=== PATIENT | female | born 1970 | race Caucasian/White ===

== ENCOUNTER 2022-01-10 08:42 | Day surgery (SDC) | payer MEDICAID, SELFPAY ==
[2022-01-08 14:22] VITALS: BMI 34.7
[2022-01-10 09:10] VITALS: BP 130/83; PULSE 79; RESP 18; TEMP 36.8; O2SAT 99
[2022-01-10] MEDS: sodium chloride 0.9% 1,000 ML 30 ML IV (09:22)
--- NOTE | 2022-01-10 09:32 | ANES.PREANE2 ---
Pre-Anesthetic Assessment Height/Weight: Height 1.57 m Weight 86.183 kg Temp Pulse Resp BP Pulse Ox 98.2 F 79 18 130/83 99 01/10/22 09:10 01/10/22 09:10 01/10/22 09:10 01/10/22 09:10 01/10/22 09:10 Preop Diagnosis: diagnostic Operation Date: 01/10/22 10:00 Proposed Procedures p EGD 91765/r10.9(Not Applicable) - Dale Aguilar MD s Colonoscopy 09781/z12.11(Not Applicable) - Dale Aguilar MD Familial anesthetic complications: none Was Beta Dolores taken within 24 hours: N/A Was Clonidine taken within 24 hours: N/A Last intake: Intake Last Liquid Date 01/09/22 Last Liquid Time 20:00 Last Solid Date 01/08/22 Last Solid Time 19:00 Social No alcohol and No tobacco Former use of methamphetamines Exam alert, oriented x 3, clear to auscultation bilaterally and regular rate & rhythm Airway Mallampati: Class II Dentition: full and other (several pulled due to dental caries) Pulmonary None reported CV/HEM None reported None reported Hepatic None reported GI None reported Metabolic None reported goiter - non toxic Musc/skel None reported Neuropsych None reported Anesthetic Plan ASA status: 2 Anesthesia: MAC Medications/Allergies Home Medications Medication Instructions Recorded Confirmed Last Taken Type azelastine 137 mcg (0.1 %) nasal 2 spray INTRANASAL BID 12/05/21 01/10/22 Unknown History spray aerosol ferrous sulfate 325 mg (65 mg 325 mg PO DAILY 12/05/21 01/10/22 01/07/22 History iron) tablet (FeroSul) omeprazole 20 mg capsule,delayed 20 mg PO DAILY 12/05/21 01/10/22 1 Week Ago History release ~01/03/22 aspirin 500 mg-acetaminophen 325 1 ea PO Q6H PRN 01/08/22 01/10/22 01/08/22 History mg-caffeine 65 mg oral powder pack ([employer] Extra Strength) fluticasone propionate 110 2 puff INHALATION BID 01/08/22 01/10/22 01/10/22 History mcg/actuation HFA aerosol inhaler (Flovent HFA) methocarbamol 750 mg tablet 750 mg PO BID 01/08/22 01/10/22 Unknown History vilazodone 10 mg tablet (Viibryd) 10 mg PO DAILY 01/08/22 01/10/22 01/10/22 History Allergies Allergy/AdvReac Type Severity Reaction Status Date / Time amoxicillin [From Augmentin] Allergy ADR-Itching Verified 01/10/22 09:09 clavulanic acid Allergy ADR-Itching Verified 01/10/22 09:09 [From Augmentin] Current Medications Generic Name Dose Route Start Last Admin Trade Name Ramuq PRN Reason Stop Dose Admin Sodium Chloride 1,000 mls @ 30 mls/hr 01/10/22 09:00 01/10/22 09:22 Sodium Chloride 0.9% IV 01/11/22 08:59 30 mls/hr .Q24H OPAL Administration PFSH Anesthesia Medical History History of substance use Mental health disorder Surgical History History of cholecystectomy Family History Other Cancer Social History Smoking and tobacco status: never smoked Second hand smoke exposure: Yes Female Reproductive History Date of last menstrual period: 10/13/21 Data Anesthesia Cardiac Studies: No Data to Display
--- NOTE | 2022-01-10 10:23 | P.HP_ITS ---
Same Day Surgery H&P Indication for Procedure/HPI DATE OF PROCEDURE: January 10, 2022 CHIEF COMPLAINT/INDICATIONFOR SURGICAL PROCEDURE: egd/colon PREOP DIAGNOSIS: diagnostic PLANNED PROCEDURE: Operation Date: 01/10/22 10:00 Proposed Procedures p EGD 30479/r10.9(Not Applicable) - Dale Aguilar MD s Colonoscopy 07462/z12.11(Not Applicable) - Dale Aguilar MD Medications/Allergies* Home Medications Medication Instructions Recorded Confirmed Type azelastine 137 mcg (0.1 %) nasal 2 spray INTRANASAL BID 12/05/21 01/10/22 History spray aerosol ferrous sulfate 325 mg (65 mg 325 mg PO DAILY 12/05/21 01/10/22 History iron) tablet (FeroSul) omeprazole 20 mg capsule,delayed 20 mg PO DAILY 12/05/21 01/10/22 History release aspirin 500 mg-acetaminophen 325 1 ea PO Q6H PRN 01/08/22 01/10/22 History mg-caffeine 65 mg oral powder pack ([employer] Extra Strength) fluticasone propionate 110 2 puff INHALATION BID 01/08/22 01/10/22 History mcg/actuation HFA aerosol inhaler (Flovent HFA) methocarbamol 750 mg tablet 750 mg PO BID 01/08/22 01/10/22 History vilazodone 10 mg tablet (Viibryd) 10 mg PO DAILY 01/08/22 01/10/22 History Allergies/Adverse Reactions Allergy/AdvReac Type Severity Reaction Status Date / Time amoxicillin [From Augmentin] Allergy ADR-Itching Verified 01/10/22 09:09 clavulanic acid Allergy ADR-Itching Verified 01/10/22 09:09 [From Augmentin] Current Medications: Generic Name Dose Route Start Last Admin Trade Name Freq PRN Reason Stop Dose Admin Sodium Chloride 1,000 mls @ 30 mls/hr 01/10/22 09:00 01/10/22 09:22 Sodium Chloride 0.9% IV 01/11/22 08:59 30 mls/hr .Q24H OPAL Administration Pertinent History/Comorbid Conditions* Medical History (Updated 12/13/21 @ 11:23 by Balta Henderson MD) History of substance use Mental health disorder Surgical History (Updated 12/05/21 @ 10:42 by Dale Aguilar MD) History of cholecystectomy Family History (Updated 12/13/21 @ 10:52 by Malgorzata Gleason MA) Cancer Social History Smoking and tobacco status: never smoked Second hand smoke exposure: Yes Pertinent Exam Findings alert, oriented x 3 and regular rate & rhythm Recommendations Surgery/Procedure today Coding Level of Care Code Acute Patient Financial Counselor for Tucker Marie
[2022-01-10 11:00] VITALS: BP 122/70; PULSE 88; RESP 18; TEMP 36.9; O2SAT 96
[2022-01-10 11:11] VITALS: BP 116/72; PULSE 81; RESP 18; TEMP 37.1; O2SAT 99
--- NOTE | 2022-01-10 13:39 | ANE.PACU2 ---
Inpatient post-anesthesia follow up: Airway intact: Yes Vital signs: Temperature 98.7 F Pulse Rate 81 Respiratory Rate 18 Blood Pressure 116/72 Pulse Oximetry 99 Oxygen Delivery Me thod Room Air Oxygen Flow Rate Fraction of Inspir ed Oxygen Hydration adequate: Yes Nausea and vomiting: No Pain level: 1 Mental status: Baseline
== END 2022-01-10 11:47 | disposition home or self-care (01) ==
PROVIDERS: PCP Physician Assistant; Visit Provider Surgery
PROC: 0DJ08ZZ Inspection of Upper Intestinal Tract, Via Natural or Artificial Opening Endoscopic (ICD-10-PCS; CPT 43235; principal; 2022-01-10 10:00)
PROC: 0DJD8ZZ Inspection of Lower Intestinal Tract, Via Natural or Artificial Opening Endoscopic (ICD-10-PCS; CPT 45378; 2022-01-10 10:00)
DX: Z12.11 Encounter for screening for malignant neoplasm of colon (principal); R10.9 Unspecified abdominal pain; K20.90 Esophagitis, unspecified without bleeding; K25.9 Gastric ulcer, unspecified as acute or chronic, without hemorrhage or perforation; K64.8 Other hemorrhoids; D12.0 Benign neoplasm of cecum; K29.50 Unspecified chronic gastritis without bleeding; Z79.82 Long term (current) use of aspirin
CPT/HCPCS: 43239; 45380; 88305; J2704; J7030